=== PATIENT | male | born 1960 | race Caucasian/White ===

== ENCOUNTER 2017-11-02 12:19 | Emergency (ER) | payer OTHER ==
[2017-11-02 12:33] VITALS: BMI 39.9
[2017-11-02] MEDS ORDERED: KETOROLAC TROMETHAMINE 30 MG/1 ML VIAL IVPUSH ONE (13:27)
[2017-11-02] MEDS ORDERED: KETOROLAC TROMETHAMINE 30 MG/1 ML VIAL ONE (13:34)
[2017-11-02] MEDS ORDERED: ONDANSETRON 4 MG/2 ML VIAL ONE (13:34)
[2017-11-02] MEDS ORDERED: ONDANSETRON 4 MG/2 ML VIAL IVPUSH ONE (13:46)
[2017-11-02] MEDS ORDERED: SODIUM CHLORIDE 1,000 ML IV ONE (13:46)
[2017-11-02 13:52] LABS: URINE APPEARANCE CLOUDY; URINE BILIRUBIN NEGATIVE (<2.0 mg/dL); URINE BLOOD NEGATIVE (NEGATIVE); URINE COLOR AMBER; URINE GLUCOSE (UA) NEGATIVE (NEGATIVE); URINE KETONE NEGATIVE (NEGATIVE); URINE LEUK ESTERASE NEGATIVE (NEGATIVE); URINE NITRITE NEGATIVE (NEGATIVE)
--- NOTE | 2017-11-02 13:55 | PDOC ---
History of Present Illness - General History Source: Patient Exam Limitations: No Limitations - History of Present Illness Initial Comments: 11/02/17 13:59 The patient is a 57 year old male who with history of cholelithiasis s/p cholecystectomy who presents to the ED complaining of right lower quadrant pain/ right back pain that began approximately 3 hours prior to evaluation. The patient describes his pain as sharp, progressively worsening at its onset, ranked 9/10 at its worst, now improved. 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 He also reports associated nausea, one episode of nonbloody nonbilious vomiting, and urinary hesitancy. He denies any abdominal masses. He denies fever or chills. He denies hematuria or dysuria. He denies history of renal colic or recurrent UTIs. <Cecilia Rosas - Last Filed: 11/02/17 14:10> <Quincy Yo - Last Filed: 11/02/17 16:42> - General Chief Complaint: Pain, Acute Stated Complaint: NAUSEA, ABD PAIN Time Seen by Provider: 11/02/17 12:40 Past History <Cecilia Rosas - Last Filed: 11/02/17 14:10> - Past Medical History COPD: No DVT: No Dementia: No Hypercholesterolemia: Yes - Surgical History Cholecystectomy: Yes - Immunization History Immunization Up to Date: Yes - Suicide/Smoking/Psychosocial Hx Smoking History: Never smoked Have you smoked in the past 12 months: No Information on smoking cessation initiated: No Hx Alcohol Use: No Drug/Substance Use Hx: No Substance Use Type: None <Quincy Yo - Last Filed: 11/02/17 16:42> - Past Medical History Allergies/Adverse Reactions: Allergies Allergy/AdvReac Type Severity Reaction Status Date / Time Penicillins Allergy Verified 11/02/17 12:28 Home Medications: Ambulatory Orders Aspirin [ASA -] 81 mg PO DAILY 11/02/17 Fenofibric Acid (Choline) [Trilipix] 135 mg PO DAILY 11/02/17 Review of Systems - Review of Systems Constitutional: No: Chills, Fever Respiratory: No: Cough, Shortness of Breath Cardiac (ROS): No: Chest Pain ABD/GI: Yes: See HPI, Nausea, Vomiting. No: Constipated, Diarrhea : Yes: See HPI, Dysuria Integumentary: No: Rash All Other Systems: Reviewed and Negative <Quincy Yo - Last Filed: 11/02/17 16:42> *Physical Exam - Vital Signs Last Vital Signs Temp Pulse Resp BP Pulse Ox 97.4 F L 51 L 18 149/88 100 11/02/17 12:29 11/02/17 12:29 11/02/17 12:29 11/02/17 12:29 11/02/17 12:29 - Physical Exam Comments: 11/02/17 14:07 GENERAL: The patient is awake, alert, and fully oriented. Uncomfortable appearing. HEAD: Normal with no signs of trauma. EYES: Pupils equal, round and reactive to light, extraocular movements intact, sclera anicteric, conjunctiva clear with no pallor. ENT: Ears normal, nares patent, oropharynx clear without exudates. Moist mucous membranes. NECK: Normal range of motion, supple without lymphadenopathy, JVD, or masses. LUNGS: Breath sounds equal, clear to auscultation bilaterally. No wheeze/ crackles. HEART: Regular rate and rhythm, normal S1 and S2 without murmur or rub. ABDOMEN: Obese abdomen. Mild right CVA, right lower quadrant, and right inguinal tenderness to palpation with no palpable incarcerated mass. BS wnl. No guarding or rebound. No hepatosplenomegaly. EXTREMITIES: Normal range of motion, no edema. No clubbing or cyanosis. No cords, erythema, or tenderness. NEUROLOGICAL: Cranial nerves II through XII grossly intact. Normal speech, normal gait. PSYCH: Normal mood, normal affect. SKIN: Warm, Dry, normal turgor, no rashes or lesions noted. <Cecilia Rosas - Last Filed: 11/02/17 14:10> - Vital Signs Last Vital Signs Temp Pulse Resp BP Pulse Ox 97.4 F L 51 L 18 149/88 100 11/02/17 12:29 11/02/17 12:29 11/02/17 12:29 11/02/17 12:29 11/02/17 12:29 <Quincy Yo - Last Filed: 11/02/17 16:42> ED Treatment Course - LABORATORY CBC & Chemistry Diagram: 11/02/17 13:40 11/02/17 13:40 - ADDITIONAL ORDERS Additional order review: Laboratory Results 11/02/17 13:35 Urine Color [place] Urine Appearance Cloudy Urine pH 5.0 Ur Specific [place] 1.033 Urine Protein 2+ H Urine Glucose (UA) Negative Urine Ketones Negative Urine Blood Negative Urine Nitrite Negative Urine Bilirubin Negative Urine Urobilinogen 2.0 Ur Leukocyte Esterase Negative <Cecilia Rosas - Last Filed: 11/02/17 14:10> - LABORATORY CBC & Chemistry Diagram: 11/02/17 13:40 11/02/17 13:40 <Quincy Yo - Last Filed: 11/02/17 16:42> Medical Decision Making - Medical Decision Making 11/02/17 13:54 A portion of this note was documented by scribe services under my direction. I have reviewed the details of the note, within reason, and agree with the documentation with the following case summary and management plan written by me. 57-year-old male with no severe past medical history and with history of cholecystectomy presents with relatively acute onset of right low back/right lower quadrant/right pelvic pain, associated with nausea/vomiting, and now essentially resolved. No history of similar pain, no history of kidney stones, reports some urinary hesitancy with the pain but no gross hematuria or flank pain. No fevers or chills. Afebrile. Well-appearing at this time, obese Soft/nondistended. Right CVA discomfort, right lower quadrant/right groin tenderness to palpation without guarding or rebound, no palpable incarcerated hernia, no significant lymphadenopathy 57-year-old male with gradual onset right groin/right low back pain that worsened in severity and became associated with nausea/vomiting 1. Now improved. Question inguinal hernia/incarceration now resolved, question renal colic. Labs, urinalysis IV fluids, nausea control, pain control CT of the abdomen and pelvis Reassess 11/02/17 14:47 No leukocytosis, chemistries are within normal limits except for creatinine of 1.5 (unknown baseline), urine analysis clear without blood. Awaiting CAT scan with oral contrast only, reassess. 11/02/17 16:42 Pain improved compared to arrival. Awaiting CTAP. Patient was signed out to the oncoming ED physician to follow-up the results, reassess the patient, and dispo accordingly. <Quincy Yo - Last Filed: 11/02/17 16:42> *DC/Admit/Observation/Transfer - Attestations Scribe Attestion: 11/02/17 14:09 Documentation prepared by Cecilia Rosas, acting as biomedical photographer for Quincy Yo MD. <Cecilia Rosas - Last Filed: 11/02/17 14:10> <Quincy Yo - Last Filed: 11/02/17 16:42> Diagnosis at time of Disposition: Right lower quadrant abdominal pain - Discharge Dispostion Condition at time of disposition: Stable - Referrals Referrals: Yady Storey [Primary Care Provider] -
[2017-11-02 13:56] LABS: URINE PROTEIN 2+ (NEGATIVE)
[2017-11-02 13:57] LABS: EPI CELLS RARE /HPF (FEW); URINE MUCUS MODERATE
[2017-11-02 14:12] LABS: BASO % 0.3 % (0-2.0); EOS % 0.3 % (0-4.5); HEMATOCRIT 46.4 % (35.4-49); HEMOGLOBIN 15.9 GM/dL (11.7-16.9); LYMPH % 8.6 % (8-40); MCH 30.1 pg (25.7-33.7); MCHC 34.3 g/dl (32.0-35.9); MEAN CELL VOLUME 87.6 fl (80-96); MEAN PLT VOLUME 9.2 fl (7.5-11.1); MONO % 4.3 % (3.8-10.2); NEUT % 86.5 % (42.8-82.8); PLATELET COUNT 125 K/MM3 (134-434); RDW 13.9 % (11.9-15.9); WHITE BLOOD COUNT 9.7 K/mm3 (4.0-10.0)
[2017-11-02 14:40] LABS: ALBUMIN 3.9 g/dl (3.4-5.0); ALK PHOS 58 U/L (45-117); ANION GAP 5 (8-16); BILIRUBIN,TOTAL 0.7 mg/dL (0.2-1.0); BLOOD UREA NITROGEN 19 mg/dL (7-18); CALCIUM 8.8 mg/dL (8.5-10.1); CHLORIDE 114 mmol/L (98-107); CO2 26 mmol/L (21-32); CREATININE 1.5 mg/dL (0.7-1.3); GLUCOSE,RANDOM 120 mg/dL (74-106); POTASSIUM 4.1 mmol/L (3.5-5.1); SGOT/AST 47 U/L (15-37); SGPT/ALT 74 U/L (12-78); SODIUM 145 mmol/L (136-145)
--- NOTE | 2017-11-02 18:46 | PDOC ---
*Physical Exam - Vital Signs Last Vital Signs Temp Pulse Resp BP Pulse Ox 97.4 F L 51 L 18 149/88 100 11/02/17 12:29 11/02/17 12:29 11/02/17 12:29 11/02/17 12:29 11/02/17 12:29 ED Treatment Course - LABORATORY CBC & Chemistry Diagram: 11/02/17 13:40 11/02/17 13:40 - ADDITIONAL ORDERS Additional order review: Laboratory Results 11/02/17 11/02/17 13:40 13:35 Sodium 145 Potassium 4.1 Chloride 114 H Carbon Dioxide 26 Anion Gap 5 L BUN 19 H Creatinine 1.5 H Creat Clearance w eGFR 48.07 Random Glucose 120 H Calcium 8.8 Total Bilirubin 0.7 AST 47 H ALT 74 Alkaline Phosphatase 58 Total Protein 7.0 Albumin 3.9 Urine Color [place] Urine Appearance Cloudy Urine pH 5.0 Ur Specific [place] 1.033 Urine Protein 2+ H Urine Glucose (UA) Negative Urine Ketones Negative Urine Blood Negative Urine Nitrite Negative Urine Bilirubin Negative Urine Urobilinogen 2.0 Ur Leukocyte Esterase Negative Urine WBC (Auto) 3 Urine RBC (Auto) 1 Ur Epithelial Cells Rare Urine Mucus Moderate 11/02/17 13:40 RBC 5.30 MCV 87.6 MCHC 34.3 RDW 13.9 MPV 9.2 Neutrophils % 86.5 H Lymphocytes % 8.6 Monocytes % 4.3 Eosinophils % 0.3 Basophils % 0.3 - Medications Given in the ED: ED Medications Discontinued Medications Generic Name Dose Route Start Last Admin Trade Name Freq PRN Reason Stop Dose Admin Sodium Chloride 1,000 mls @ 1,000 mls/hr 11/02/17 13:46 11/02/17 14:00 Normal Saline - IV 11/02/17 14:45 1,000 mls/hr ONCE ONE Administration Ketorolac Tromethamine 30 mg 11/02/17 13:27 11/02/17 14:00 Toradol Injection - IVPUSH 11/02/17 13:28 30 mg ONCE ONE Administration Ondansetron HCl 4 mg 11/02/17 13:46 11/02/17 14:00 Zofran Injection IVPUSH 11/02/17 13:47 4 mg ONCE ONE Administration Medical Decision Making - Medical Decision Making 11/02/17 18:44 57-year-old male who presented with right flank pain, nausea and vomiting. CAT scan reveals a 3.5 mm obstructing stone in the right UVJ with some moderate hydronephrosis. Patient does not want to be admitted and so therefore will send his prescriptions to his pharmacy -pt to receive flomax,IVF,pain meds RX flomas,zofran,toradol 11/02/17 19:01 *DC/Admit/Observation/Transfer Diagnosis at time of Disposition: Right lower quadrant abdominal pain, Kidney calculus, Renal colic on right side Hydronephrosis Qualifiers: Hydronephrosis type: with renal calculous obstruction Qualified Code(s): N13.2 - Hydronephrosis with renal and ureteral calculous obstruction - Discharge Dispostion Disposition: HOME Condition at time of disposition: Good - Prescriptions Prescriptions: Ketorolac Tromethamine [Toradol] 10 mg PO Q6H PRN #12 tablet MDD 4 PRN Reason: renal colic Ondansetron [Zofran Odt -] 4 mg SL TID PRN #12 od.tablet PRN Reason: Nausea And/Or Vomiting Tamsulosin HCl [Flomax -] 0.4 mg PO DAILY #7 cap.er.24h - Referrals Referrals: Yady Storey [Primary Care Provider] - Oscar De Oliveira MD [Staff Physician] - - Patient Instructions Printed Discharge Instructions: DI for Kidney Stones Additional Instructions: 1. please follow up with your doctor, you will need to see a urologist and may need lithrotripsy for your kidney stone 2. 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
[2017-11-02 18:55] VITALS: BP 155/85; PULSE 72; TEMP 98
[2017-11-02] MEDS ORDERED: TAMSULOSIN HCL 0.4 MG CAP.ER.24H (FP) PO ONE (19:08)
[2017-11-02] MEDS ORDERED: TAMSULOSIN HCL 0.4 MG CAP.ER.24H (FP) ONE (19:24)
[2017-11-02] MEDS ORDERED: KETOROLAC TROMETHAMINE 60 MG/2 ML VIAL IM ONE (19:35)
[2017-11-02] MEDS ORDERED: ONDANSETRON *ODT* 4 MG TABLET SL ONE (19:35)
[2017-11-02] MEDS ORDERED: ONDANSETRON 8 MG TABLET (FP) PO ONE (19:41)
[2017-11-02] MEDS ORDERED: KETOROLAC TROMETHAMINE 60 MG/2 ML VIAL ONE (19:41)
== END 2017-11-02 19:48 | disposition home or self-care (01) ==
LOC: JER 12:19
PROC: 3E033GC Introduction of Other Therapeutic Substance into Peripheral Vein, Percutaneous Approach (ICD-10-PCS; principal; 2017-11-02)
PROC: 3E0333Z Introduction of Anti-inflammatory into Peripheral Vein, Percutaneous Approach (ICD-10-PCS; 2017-11-02)
PROC: 3E0233Z Introduction of Anti-inflammatory into Muscle, Percutaneous Approach (ICD-10-PCS; 2017-11-02)
DX: N13.2 Hydronephrosis with renal and ureteral calculous obstruction (principal); Z90.49 Acquired absence of other specified parts of digestive tract
CPT/HCPCS: 36415; 74176-TC; 80053; 81003; 81015; 85025; 87086; 99282-25; J7030; Q0162